=== PATIENT | male | born 1955 | race Caucasian/White ===

== ENCOUNTER 2016-11-02 06:02 | Day surgery (SDC) | payer OTHER ==
[2016-11-02] VITALS (9 sets, daily range): BP systolic 111–129; BP diastolic 62–77; PULSE 53–68; RESP 9–14; O2SAT 93–99
[~2016-11-02] VITALS: Ht 177.8 cm; Wt 97.3 kg
[~2016-11-02 06:02] MED LIST: ASPI-973 PO; CHOL10008 PO; IBUP800T28 PO; Lactated Ringer's 1,000 ML IV SCH
[2016-11-02] MEDS ORDERED: MetoCLOpramide 5 mg/mL 2 mL Inj ONE (06:03)
[2016-11-02] MEDS ORDERED: Ondansetron 2 mg/mL 2 mL Inj ONE (06:03)
[2016-11-02] MEDS ORDERED: Propofol 10,000 mCg/mL 20 mL Inj ONE (06:03)
[2016-11-02] MEDS ORDERED: fentaNYL-PF 50 mCg/mL 2 mL Inj ONE (06:03)
[2016-11-02] MEDS: Lactated Ringer's 1,000 ML IV SCH ×2 (06:19→07:25)
[2016-11-02] MEDS: CeFAZolin 2 Gm/50 mL D5W IV Premix IV ONE ×2 (07:29→07:40)
[2016-11-02] MEDS ORDERED: Lactated Ringer's 1,000 ML IV SCH (07:37)
[2016-11-02] MEDS ORDERED: Lactated Ringer's 500 ML IV PRN (07:37)
--- NOTE | 2016-11-02 07:37 | PCM.HPANE ---
Patient Data Date of Service: Nov 02, 2016 (0710) Surgeon Admitting Provider: Attending Provider:Justice Morel MD Primary Care Physician:Daniel Gonzales MD Other Provider:Maria D Preston Anesthesia Reason for Visit Right Knee Medial Meniscal Tear Ht/WT & BMI Height (Feet): 5 Height (Inches): 10.00 Weight (Kilograms): 97.340 Body Mass Index 30.00 Allergies Coded Allergies: Penicillins (Verified Allergy, Unknown, gi problems, 10/30/16) hydrocodone (Verified Adverse Reaction, Severe, 01/22/14) Past Anesthesia History Anesthesia History: Denies:: Abnormal Airway, Anesthesia Reactions, Difficult Intubation, Fam Anesthesia Reaction, Fam Malignant Hypertherm, Malignant Hyperthermia Diabetes History Hx Diabetes?: No MRSA MRSA: No Medications Blood Thinner: Aspirin Hypertension Medication: No Home Meds Incl Beta Wolfgang: No Reported Medications Cholecalciferol (Vitamin D3) (Vitamin D3)1,000 Unit Tab.chew1,000 Unit PO DAILY 10/30/16 Ibuprofen 800 Mg [id number] Mg PO TID PRN For Pain Ref 0 10/30/16 Aspirin 81 Mg [id number] Mg PO DAILY Ref 0 10/30/16 Discontinued Reported Medications IBUPROFEN-Expunged Drug, Do Not Renew! 600 Mg [id number] Mg PO Q4 PRN 10/15/10 History History of ENT Problems?: No HEENT History: Positive for:: Hearing Problem Denies:: Abnormal Airway Difficult Intubation Dysphagia Denture Type: None Teeth Condition: Within Normal Limits Hx of Heart Problems?: No Cardiovascular History: Denies:: AICD Atrial Fibrillation Chest Pain Hypertension Pacemaker Valvular Heart Disease Hx of Respiratory Problem?: No Respiratory History: Denies:: Asthma COPD Cough Hemoptysis Oxygen Administration Pneumonia Tuberculosis Use of C-PAP Machine Hx Neurologic Problems?: No Neurological History: Denies:: CVA Dementia Multiple Sclerosis Parkinson's Disease Hx of GI Problems?: No Hx of Problems?: No Genitourinary History: Denies:: Kidney Stones Urinary Tract Infection Male Hx: Denies:: Prostate Problems Scrotal Mass Testicular Surgery Skin History: Denies:: History Skin Disorders? Pressure Ulcers Hx Musculoskeletal Problems?: Yes Musculoskeletal History: Positive for:: Back Injury (hx of back pain) Degenerative Joint Musculoskeletal Trauma (right knee current admission problem) Osteoarthritis Denies:: Joint Replacement Hx of Psycho/Social Problems?: No Psycho Social History: Denies:: Anxiety Hx Depression Suicide Attempt Hx Surgeries?: Yes (MELONALOMA) Hx Any Other Health Problems?: Yes Other History: Positive for:: Cancer (Melanoma hx) Hospitalization Denies:: Thyroid Disease History Blood Transfusions: Denies:: Blood Transfusions Hx Diabetes: No Hx Alcohol Use: Yes (OCCASSIONALLY)Hx Substance Use: No Smoking Status: Never Smoker Have You Smoked inLast 12 mo: No Stop/Bang S-Snoring: Do You Snore Loudly: Yes T-Tired: feel tired, fatigued: No O-Obsered: Observed not breath: Yes P-Blood Pressure: treated: No B- Body Mass Index > 35 kg/m2: No A- Age over 50: Yes N- Neck Large Circumference: No G- Gender Male: Yes FORTUNATO Total Score: 4 Risk Assessment Category Category 1A: Patient has history of documented sleep apnea, and HAS NOT received any narcotic, sedative or anesthesia administration during this stay. Category 1B: Patient has history of documented sleep apnea, and HAS received any narcotic , sedative or anesthesia administration during this stay Category 2: Patient has SUSPECTED Obstructive Sleep Apnea, and HAS received any narcotic , sedative or anesthesia administration during this stay. Category 3: Patient has SUSPECTED Obstructive Sleep Apnea and HAS NOT received narcotic, sedative or anesthesia administration during this stay. Category 4: Outpatient in Procedural Areas with known sleep apnea or who screen positive for High Risk via the STOP/BANG questionnaire. Exam Exam Vital Signs Vital Signs Date Time Temp Pulse Resp B/P Pulse Ox O2 Delivery O2 Flow Rate FiO2 11/02/16 06:19 36.2 68 14 129/73 96 Room Air General Appearance: Alert, Oriented X3, Cooperative, No Acute Distress HEENT/AIRWAY: MP 3 Lungs: Clear to Auscultation Heart: Exam Unremarkable Meds/Labs/Diagnostics Admission Meds Current Medications Cefazolin Sodium/ Dextrose 2 gm/ Premix 50 ml @ 100 mls/hr PREOP ONCE IV Last administered on 11/02/16 07:29; Start 11/02/16 at 06:00; Stop 11/02/16 at 06:29; Status DC Lactated Ringer's (Lr) 1,000 ml @ 120 mls/hr Q8H20M IV Last administered on 07:25; Start 11/02/16 at 05:00; Stop 11/02/16 at 13:19 Plan Impression Patient chart reviewed, patient interviewed and anesthestic plan with risks, benefits, and alternatives discussed, and informed consent obtained. ASA Physical Status: ASA1 Normal Healthy Anesthetic Plan: GA Bene/Risks/Altern/Consents: Yes HP Complete Prior to Induction: Yes Cornelio Brooke MD Nov 02, 2016 07:37
[2016-11-02] MEDS ORDERED: Ondansetron 2 mg/mL 2 mL Inj IVPUSH PRN (07:40)
[2016-11-02] MEDS ORDERED: MetoCLOpramide 5 mg/mL 2 mL Inj IVPUSH PRN (07:40)
[2016-11-02] MEDS ORDERED: EPHEDrine Sulfate 50 mg/mL Inj IVPUSH PRN (07:40)
[2016-11-02] MEDS ORDERED: fentaNYL-PF 50 mCg/mL 2 mL Inj IVPUSH PRN (07:40)
[2016-11-02] MEDS ORDERED: Dexamethasone 4 mg/mL Inj IVPUSH PRN (07:40)
[2016-11-02] MEDS ORDERED: Phenylephrine 10,000 mCg/mL Inj IVPUSH PRN (07:40)
[2016-11-02] MEDS ORDERED: HYDROmorphone 1 mg/mL Inj IVPUSH PRN (07:40)
[2016-11-02] MEDS ORDERED: Bupivacaine-MPF 0.5% W/EPI 30 mL Inj INFILTRATE ONE (07:50)
[2016-11-02] MEDS ORDERED: Dexamethasone 4 mg/mL Inj INTRARTICU ONE (07:54)
[2016-11-02] MEDS ORDERED: HYDROcodone-APAP 5-325 mg Tablet PO PRN (08:30)
[2016-11-02] MEDS ORDERED: HYDROmorphone 0.5 mg/0.5 mL iSecure Syringe ONE (08:33)
--- NOTE | 2016-11-02 08:57 | PCM.ANEP1 ---
Post Anesthesia PACU Phase 1 Assessment Vital Signs Vital Signs Date Time Temp Pulse Resp B/P Pulse Ox O2 Delivery O2 Flow Rate FiO2 11/02/16 08:45 36.1 55 14 117/72 96 Room Air 11/02/16 08:40 54 11 122/69 98 Room Air 11/02/16 08:35 56 14 113/77 98 Simple Mask 7 11/02/16 08:30 57 14 114/64 99 Simple Mask 7 11/02/16 08:26 36.4 117/74 11/02/16 06:19 36.2 68 14 129/73 96 Room Air Anesthetic Administered: GA Level of Alertness: Sleepy, easy to arouse NASH's with Equal Strength: Yes Pain: No Nausea or Vomiting: No CV Function & Hydration Stable: Yes Airway Device: Oxygen Delivery: Simple Mask Lungs: Clear to Auscultation Dermatome Level: Full Sensation PACU Phase 2 Assessment Complications: No Patient Instructions Provided: N/A Cornelio Brooke MD Nov 02, 2016 08:56
--- NOTE | 2016-11-02 11:49 | OP ---
[address] [address] OPERATIVE REPORT PATIENT: PILLO ASTUDILLO : 1955 MR#: [id number] ADMIT: 11/02/2016 JOB ID: [id number] DATE OF SURGERY: 11/02/2016 PREOPERATIVE DIAGNOSIS(ES): Internal derangement, left knee. POSTOPERATIVE DIAGNOSIS(ES): Medial and lateral meniscal tears. SURGEON: Justice Morel MD. BOTTLE ASSEMBLER: None. COMPLICATIONS: None. INDICATIONS: The patient has had persistent mechanical symptoms associated with a meniscal pathology. It has been unresponsive to conservative treatment. He elects for an arthroscopic meniscectomy. PROCEDURE: Medial and lateral meniscectomy of left knee. DESCRIPTION OF PROCEDURE: The patient was prepped and draped in the usual sterile fashion. Standard diagnostic arthroscopy carried out through two anterior portals. Minimal degenerative changes noted of the patellofemoral joint. Clear medial and lateral gutters. A small posterior horn lateral meniscal tear was encountered. The ACL was noted to be intact. Mild softening of the tibial plateau. In the medial compartment there was mild chondromalacia of the tibial plateau and the femoral condyle. It was grade 2 in nature. A complex posterior horn medial meniscal tear was encountered. The patient had a very tight medial collateral ligament, and a limited fiber release was performed with an 18-gauge needle medially to allow for adequate exposure for the meniscectomy. Following the diagnostic arthroscopy, baskets and a meniscal resector blade were utilized to resect the posterior horn of the lateral meniscal tear. No complications were noted. Attention was turned to the medial side. After the limited release, the medial collateral of the knee was still quite tight, and a 3.5 shaver and small upbiting and side-biting baskets were utilized to carefully perform a partial medial meniscectomy, removing all unstable medial meniscal tissue. A probe was utilized to confirm a thorough removal of unstable tissue. Meniscus was contoured to a smooth margin. Knee was irrigated with large quantities of sterile irrigant with debris removed. The patient was taken to the recovery room in stable condition. He tolerated the procedure well. There were no complications.
== END 2016-11-02 23:59 | disposition home or self-care (01) ==
LOC: SAS 06:02
PROVIDERS: ATTEND Orthopaedic Surgery
DX: M23.252 Derangement of posterior horn of lateral meniscus due to old tear or injury, left knee (principal); M23.222 Derangement of posterior horn of medial meniscus due to old tear or injury, left knee; M22.42 Chondromalacia patellae, left knee; E78.1 Pure hyperglyceridemia; R73.01 Impaired fasting glucose; M19.90 Unspecified osteoarthritis, unspecified site; Z79.82 Long term (current) use of aspirin; Z85.820 Personal history of malignant melanoma of skin
CPT/HCPCS: 29880; J0690; J1100; J1170; J1885; J2405; J2765; J3010; J7120